=== PATIENT | female | born 1975 | race Two or more races ===

== ENCOUNTER 2020-07-02 09:53 | Emergency (ER) | payer MEDICAID ==
[~2020-07-02] VITALS: Ht 162.6 cm; Wt 88.5 kg
[2020-07-02 10:28] LABS: Urine Bacteria NONE SEEN /hpf (None Seen); Urine Blood 3+ /uL (Negative); Urine Mucus FEW (None Seen); Urine Specific Gravity 1.008 (1.001-1.035); Urine WBC <1 /hpf (0 - 5)
[2020-07-02 10:36] LABS: Alcohol, Urine < 3.0 mg/dL (0-10); Amphetamine Screen, Urine NEGATIVE (NEGATIVE); Barbiturate Scree,Urine NEGATIVE (NEGATIVE); Benzodiazephine Screen, Urine NEGATIVE (NEGATIVE); Cannabinoid Screen, Urine NEGATIVE (NEGATIVE); Cocaine Screen, Urine NEGATIVE (NEGATIVE); Opiate Scree,Urine NEGATIVE (NEGATIVE); Phencyclidine Screen, Urine NEGATIVE (NEGATIVE)
[2020-07-02 13:43] VITALS: BP 131/85
== END 2020-07-02 13:49 | disposition home or self-care (01) ==
LOC: ER 09:53
DX: N93.9 Abnormal uterine and vaginal bleeding, unspecified (principal); N83.201 Unspecified ovarian cyst, right side; R93.89 Abnormal findings on diagnostic imaging of other specified body structures; Z88.0 Allergy status to penicillin; Z90.49 Acquired absence of other specified parts of digestive tract; Z98.890 Other specified postprocedural states
CPT/HCPCS: 36415; 76830; 76856; 80307; 81001; 84702